=== PATIENT | female | born 1990 | race Hispanic/Latino ===

== ENCOUNTER 2021-05-13 11:28 | Emergency (ER) | payer SELFPAY ==
[2021-05-13] MEDS ORDERED: Sodium Chloride 0.9% 10 ML Syringe FLUSH PRN (11:52)
[2021-05-13] MEDS ORDERED: FLU Vacc QS2021-22 36MOS UP/PF 60 MCG/0.5 ML Syringe IM ONE (12:00)
--- NOTE | 2021-05-13 12:06 | EDM.PDOC ---
ED HPI GENERAL MEDICAL PROBLEM - General Chief Complaint: [facility] Problem Stated Complaint: HEAVY BLEEDING Time Seen by Provider: 05/13/21 11:51 Source of Information: Reports: Patient, RN Notes Reviewed History Limitations: Reports: Language Barrier (primarily moldovan speaking; [employer] heavy duty diesel mechanic used) - History of Present Illness INITIAL COMMENTS - FREE TEXT/NARRATIVE: Patient is a 31-year-old female who presents to the ER for her abdomen cramping and vaginal bleeding in early . Patient is primarily Indonesian-speaking, we do use an heavy duty diesel mechanic for most of the history and exam. Patient states her last menstrual period was March 12, 2021. She has taken 2 at home positive tests. She is a G1, P0. She has not set up with an [facility] at this time. She states that last night, she developed some low abdomen pain and low back pain. And this morning she started having some bleeding per her vagina. And states that she has soaked through 1 maxi pad so far. She does states she has a history of ovarian cysts, but this was about 5 years ago. She is not having any urinary symptoms, she is having no sick symptoms like fevers or chills, cough or shortness of breath or any sort of worsening nausea, or any vomiting or diarrhea. Lower Abdomen Pain Score (Numeric/FACES): 10 - Related Data Allergies Allergy/AdvReac Type Severity Reaction Status Date / Time No Known Allergies Allergy Verified 05/13/21 11:50 Home Meds: Home Meds Folic Acid 0 mg PO DAILY 05/13/21 [History] Past Medical History - Past Health History Medical/Surgical History: Denies Medical/Surgical History : 1 Para: 0 - History Comment History Comment: Patient is primarily moldovan speaking Social & Family History - Tobacco Use Tobacco Use Status *Q: Never Tobacco User - Caffeine Use Caffeine Use: Reports: Coffee - Recreational Drug Use Recreational Drug Use: No ED ROS GENERAL - Review of Systems Review Of Systems: Comprehensive ROS is negative, except as noted in HPI. ED EXAM - Physical Exam Exam: See Below Exam Limited By: No Limitations General Appearance: Alert, WD/WN, No Apparent Distress Respiratory/Chest: No Respiratory Distress, Lungs Clear, Normal Breath Sounds, No Accessory Muscle Use, Chest Non-Tender Cardiovascular: Normal Peripheral Pulses, Regular Rate, Rhythm, No Edema GI/Abdominal Exam: Normal Bowel Sounds, Soft, No Distention, No Mass, Tender (LLQ mainly) (Female) Exam: Vaginal Bleeding. No: Tissue Present in Cervix/Vagina Heart Tones: Not [place] Movement: Not Appreciated Extremities: Normal Inspection, Normal Capillary Refill Neurological: Alert, Oriented, Normal Cognition, No Motor/Sensory Deficits Psychiatric: Normal Affect, Normal Mood Skin Exam: Warm, Dry, Intact, Normal Color, No Rash Course - Vital Signs Last Recorded V/S: Last Vital Signs Temp 97.9 F 05/13/21 11:46 Pulse 74 05/13/21 11:46 Resp 16 05/13/21 11:46 BP 144/100 H 05/13/21 11:46 Pulse Ox 100 05/13/21 11:46 - Orders/Labs/Meds Orders: Active Orders 24 hr Category Date Time Status Peripheral IV Care [RC] . DIRECTED Care 05/13/21 11:52 Ordered Vaccine to be Administered/Admin Charge [RC] ASDIRECTED Care 05/13/21 11:53 Active CULTURE URINE [MREF] Urgent Lab 05/13/21 14:15 Ordered Sodium Chloride 0.9% [Saline Flush] Med 05/13/21 11:52 Ordered 10 ml FLUSH ASDIRECTED PRN Peripheral IV Insertion Adult [OM.PC] Stat Oth 05/13/21 11:52 Ordered Medication Orders Sodium Chloride (Sodium Chloride 0.9% 10 Ml Syringe) 10 ml FLUSH ASDIRECTED PRN PRN Reason: Keep Vein Open Labs: Laboratory Tests 05/13/21 05/13/21 05/13/21 Range/Units 12:51 12:51 12:51 WBC 8.72 (3.98-10.04) K/mm3 RBC 4.86 (3.98-5.22) M/mm3 Hgb 13.6 (11.2-15.7) gm/dl Hct 41.6 (34.1-44.9) % MCV 85.6 (79.4-94.8) fl MCH 28.0 (25.6-32.2) pg MCHC 32.7 (32.2-35.5) g/dl RDW Std Deviation 42.8 (36.4-46.3) fL Plt Count 388 H (182-369) K/mm3 MPV 8.3 L (9.4-12.3) fl Neut % (Auto) 55.8 (34.0-71.1) % Lymph % (Auto) 36.7 (19.3-51.7) % [place] % (Auto) 4.9 (4.7-12.5) % Eos % (Auto) 2.2 (0.7-5.8) Baso % (Auto) 0.3 (0.1-1.2) % Neut # (Auto) 4.86 (1.56-6.13) K/mm3 Lymph # (Auto) 3.20 (1.18-3.74) K/mm3 [place] # (Auto) 0.43 H (0.24-0.36) K/mm3 Eos # (Auto) 0.19 (0.04-0.36) K/mm3 Baso # (Auto) 0.03 (0.01-0.08) K/mm3 Manual Slide Review Abnormal smear HCG, Quant < 1.0 mIU/mL Urine Color (Yellow) Urine Appearance (Clear) Urine pH (5.0-8.0) Ur Specific [place] (1.005-1.030) Urine Protein (Negative) Urine Glucose (UA) (Negative) Urine Ketones (Negative) Urine Occult Blood (Negative) Urine Nitrite (Negative) Urine Bilirubin (Negative) Urine Urobilinogen (0.2-1.0) Ur Leukocyte Esterase (Negative) Urine RBC (0-5) /hpf Urine WBC (0-5) /hpf Ur Squamous Epith Cells (0-5) /hpf Urine Bacteria (FEW) /hpf Urine Mucus (FEW) /hpf Blood Type O POSITIVE 05/13/21 Range/Units 13:05 WBC (3.98-10.04) K/mm3 RBC (3.98-5.22) M/mm3 Hgb (11.2-15.7) gm/dl Hct (34.1-44.9) % MCV (79.4-94.8) fl MCH (25.6-32.2) pg MCHC (32.2-35.5) g/dl RDW Std Deviation (36.4-46.3) fL Plt Count (182-369) K/mm3 MPV (9.4-12.3) fl Neut % (Auto) (34.0-71.1) % Lymph % (Auto) (19.3-51.7) % [place] % (Auto) (4.7-12.5) % Eos % (Auto) (0.7-5.8) Baso % (Auto) (0.1-1.2) % Neut # (Auto) (1.56-6.13) K/mm3 Lymph # (Auto) (1.18-3.74) K/mm3 [place] # (Auto) (0.24-0.36) K/mm3 Eos # (Auto) (0.04-0.36) K/mm3 Baso # (Auto) (0.01-0.08) K/mm3 Manual Slide Review HCG, Quant mIU/mL Urine Color Light yellow (Yellow) Urine Appearance Clear (Clear) Urine pH 6.0 (5.0-8.0) Ur Specific [place] 1.015 (1.005-1.030) Urine Protein Negative (Negative) Urine Glucose (UA) Negative (Negative) Urine Ketones Negative (Negative) Urine Occult Blood 3+ H (Negative) Urine Nitrite Negative (Negative) Urine Bilirubin Negative (Negative) Urine Urobilinogen 0.2 (0.2-1.0) Ur Leukocyte Esterase Trace H (Negative) Urine RBC 10-20 H (0-5) /hpf Urine WBC 5-10 H (0-5) /hpf Ur Squamous Epith Cells 0-5 (0-5) /hpf Urine Bacteria Few (FEW) /hpf Urine Mucus Few (FEW) /hpf Blood Type Meds: Medications Generic Name Dose Route Start Last Admin Trade Name Freq PRN Reason Stop Dose Admin Sodium Chloride 10 ml 05/13/21 11:52 Sodium Chloride 0.9% 10 Ml Syringe FLUSH ASDIRECTED PRN Keep Vein Open Discontinued Medications Generic Name Dose Route Start Last Admin Trade Name Freq PRN Reason Stop Dose Admin Influenza Virus Vaccine 60 mcg 05/13/21 12:00 05/13/21 12:54 Flu Vacc [id number] 36mos Up/Pf 60 Mcg/0.5 Ml Syringe IM 05/13/21 12:01 60 mcg .ONCE ONE Administration - Re-Assessments/Exams Free Text/Narrative Re-Assessment/Exam: 05/13/21 12:06 Patient presents to the ER for evaluation of her abdominal pain and vaginal bleeding in early . Have ordered ultrasound and some basic labs for initial evaluation. 05/13/21 13:29 Ultrasound has been performed, the endometrium shows no intrauterine gestational sac, or adnexal abnormalities visualized. There is a small amount of free fluid within the cul-de-sac, and an incidental nabothian cyst and questionable 1.6 cm uterine fibroids. Still awaiting hCG quantitative level, but the CBC is unremarkable, urine does show 3+ occult blood and a trace of leukocyte Estrace however microscopy is still pending at this time. 05/13/21 14:08 hCG quantitative level is less than 1. It does appear as if the patient may have already spontaneously miscarried due to there being no gestational sac on the ultrasound. I will call [facility] on-call for consultation and hopefully get the patient discharged home at this time. 05/13/21 14:17 I was able to speak with Dr. Ferris, [facility] on-call, and he thinks that she could have may be had a false positive since her hCG quantitative level was less than 1 as well and that this could be the start of her menses. There was no sign of ovarian cyst on the ultrasound. If she is continued having any pain or otherwise, she may follow-up with [facility] otherwise he does not have any concerns for ectopic at this time. I will make this known to the patient. The urine did have quite a bit of blood in it, and trace leukocyte esterase with 5-10 white cells. This could be the start of a UTI as well but we will go ahead and culture the urine and let her know if she should need antibiotic coverage. Departure - Departure Time of Disposition: 14:19 Disposition: Home, Self-Care 01 Condition: Good Clinical Impression: LLQ abdominal pain, Positive home test, Vaginal bleeding - Discharge Information *PRESCRIPTION DRUG MONITORING PROGRAM REVIEWED*: No *COPY OF PRESCRIPTION DRUG MONITORING REPORT IN PATIENT DIANNE: No Instructions: Abdominal Pain, Adult, [id number] Referrals: Pascual Ferris MD [Physician] - Forms: ED Department Discharge Additional Instructions: You were evaluated in the ER today for your vaginal bleeding and low abdomen discomfort with a home positive test. You did have some labs drawn, and these were within normal limits, your hCG level was less than 1, your blood type is A+. Your case was discussed with our [facility], Dr. Ferris, and he does believe that you could have had a false positive test at home due to your hCG level being so low at today's visit. Your ultrasound demonstrated no intrauterine gestational sac or adnexal abnormalities. You are not at risk at today's visit for ectopic by ultrasound, and laboratory evaluation. Dr. Ferris also thought this could be the start of your menses, and could have just been a little bit later than normal. You may take 600 mg ibuprofen every 6 hours as needed for ongoing abdomen discomfort. Please return to the ED or follow-up with [facility] at any time if your symptoms change or worsen. Malcolm la evaluaron en la brandon de emergencias por rogers sangrado vaginal y malestar en la parte baja del abdomen con filipe prueba de embarazo positiva en el hogar. Le hicieron algunos anlisis de laboratorio, y estos estaban dentro de los lmites normales, rogers nivel de hCG era inferior a 1, rogers tipo de nayeli es A +. Rogers everardo fue discutido con nuestro obstetra / gineclogo, el Dr. Ferris, y l santiago que podra carla tenido filipe prueba de embarazo falsa positiva en casa debido a que rogers nivel de hCG era delgado bajo en la visita de malcolm. Orgers ecografa no demostr anomalas en el saco gestacional intrauterino ni en los anexos. En la visita de malcolm, usted no corre riesgo de tener un embarazo ectpico por ultrasonido y evaluacin de laboratorio. El Dr. Ferris tambin pens que chris podra ser el comienzo de rogers menstruacin, y podra carla sido un poco ms tarde de lo normal. Puede lizbet 600 mg de ibuprofeno cada 6 horas segn sea necesario para el malestar abdominal continuo. Regrese al servicio de urgencias o akhil un seguimiento con un obstetra / gineclogo en cualquier momento si hi sntomas cambian o empeoran. Llame al [phone] lo antes posible para programar filipe rodger con un obstetra / gineclogo. Sepsis Event Note (ED) - Evaluation Sepsis Screening Result: No Definite Risk - Focused Exam Vital Signs: Vital Signs Temp Pulse Resp BP Pulse Ox 05/13/21 11:46 97.9 F 74 16 144/100 H 100 - My Orders Last 24 Hours: My Active Orders 05/13/21 11:52 Peripheral IV Care [RC] . DIRECTED Sodium Chloride 0.9% [Saline Flush] 10 ml FLUSH ASDIRECTED PRN Peripheral IV Insertion Adult [OM.PC] Stat 05/13/21 11:53 Vaccine to be Administered/Admin Charge [RC] ASDIRECTED 05/13/21 14:15 CULTURE URINE [MREF] Urgent - Assessment/Plan Last 24 Hours: My Active Orders 05/13/21 11:52 Peripheral IV Care [RC] . DIRECTED Sodium Chloride 0.9% [Saline Flush] 10 ml FLUSH ASDIRECTED PRN Peripheral IV Insertion Adult [OM.PC] Stat 05/13/21 11:53 Vaccine to be Administered/Admin Charge [RC] ASDIRECTED 05/13/21 14:15 CULTURE URINE [MREF] Urgent
--- NOTE | 2021-05-13 13:19 | US ---
First trimester obstetrical ultrasound: Multiple real-time images were obtained transabdominally and transvaginally. Comparison: No prior imaging is available. Uterus is anteverted. Endometrium shows no gestational sac. Endometrial thickness is 1.1 cm. Questionable small fibroid measuring 1.6 cm is possible. Small nabothian cyst is seen. Small amount of free fluid is seen within the posterior pelvis. Right and left ovaries show no cyst or solid abnormality. Ovarian measurements: Right side: 3.1 x 2.2 x 3.3 cm Left side: 2.4 x 1.4 x 2.7 cm Impression: 1. No intrauterine gestational sac or adnexal abnormalities are seen. 2. Small amount of free fluid within the cul-de-sac. 3. Incidental nabothian cyst and questionable 1.6 cm fibroid. Diagnostic code #2
== END 2021-05-13 15:08 | disposition home or self-care (01) ==
LOC: JD.ED 11:28
DX: N93.9 Abnormal uterine and vaginal bleeding, unspecified (principal); Z23 Encounter for immunization
CPT/HCPCS: 36415; 76817; 76817-26; 81001; 84702; 85025; 86900; 86901; 87086; 90686; 99284-25; G0008